=== PATIENT | female | born 1955 | race Two or more races ===

== ENCOUNTER 2022-05-04 12:58 | Outpatient (CLI) | payer OTHER | END 2022-05-04 13:01 | disposition home or self-care (01) | LOC: NUCLEAR 12:58 | PROVIDERS: ATTEND Internal Medicine Cardiovascular Disease | DX: M81.0 Age-related osteoporosis without current pathological fracture (principal); E55.9 Vitamin D deficiency, unspecified ==

== ENCOUNTER 2023-02-17 18:37 | Emergency (ER) | payer OTHER ==
[~2023-02-17] VITALS: Ht 149.9 cm; Wt 59.0 kg
[2023-02-17] MEDS ORDERED: ZESTRIL20 MG (19:45)
[2023-02-17] MEDS ORDERED: PRILOSEC OTC20 MG (19:45)
[2023-02-17] MEDS ORDERED: DILTIAZEM HCL120 MG (19:46)
[2023-02-17] MEDS ORDERED: CLONAZEPAM1 M1 (19:47)
== END 2023-02-18 02:02 | disposition home or self-care (01) ==
LOC: ER 18:37
DX: J06.9 Acute upper respiratory infection, unspecified (principal); Z88.0 Allergy status to penicillin; I10 Essential (primary) hypertension